=== PATIENT | male | born 1995 | race Caucasian/White ===

== ENCOUNTER 2024-08-20 19:43 | Emergency (ER) | payer BC ==
[2024-08-20] MEDS: Ketorolac 60 MG/2 ML SDV IM ONE (20:25)
== END 2024-08-20 21:45 | disposition home or self-care (01) ==
LOC: JD.ED 19:43
DX: J02.9 Acute pharyngitis, unspecified (principal); K12.2 Cellulitis and abscess of mouth; Z91.013 Allergy to seafood; Z79.899 Other long term (current) drug therapy
CPT/HCPCS: 87651; 96372; 99283; J1885

== ENCOUNTER 2025-01-07 00:32 | Emergency (ER) | payer BC ==
[2025-01-07] MEDS: Ketorolac 60 MG/2 ML SDV IM ONE (01:00)
== END 2025-01-07 02:22 | disposition home or self-care (01) ==
LOC: JD.ED 00:32
DX: M54.41 Lumbago with sciatica, right side (principal); Z91.013 Allergy to seafood
CPT/HCPCS: 36415; 72100; 85379; 96372; 99283; A9270; J1171; J1885; 99284